=== PATIENT | female | born 1965 | race African-American/Black ===

== ENCOUNTER 2019-06-02 09:22 | Emergency (ER) | payer OTHER, SELFPAY ==
--- NOTE | ~2019-06-02 | XR_ITS ---
EXAMINATION: XR chest 2V 06/02/2019 10:03 INDICATION: Upper left-sided chest pain PROCEDURE: 2 view chest COMPARISON: No prior studies for comparison. FINDINGS: The lungs are clear. The cardiomediastinal silhouette is within normal limits. There are no pleural effusions. There is no pneumothorax suspected. IMPRESSION: 1: NO ACUTE CARDIOPULMONARY DISEASE. Reviewed, dictated and finalized at location A.
--- NOTE | 2019-06-02 09:24 | ECG_ITS ---
Measurements Intervals [place] Rate: 72 P: 30 IA: 133 QRS: -44 QRSD: 90 T: 30 QT: 405 QTc: 446 Interpretive Statements SINUS RHYTHM LEFT AXIS DEVIATION DELAYED PRECORDIAL R/S TRANSITION VOLTAGE CRITERIA FOR LVH BASELINE ARTIFACT- V1-V3 BORDERLINE ECG Electronically Signed On 06-02-2019 10:55:49 CDT by Nikko Manzo D.O.
[2019-06-02 09:30] VITALS: BP 185/116; PULSE 72; RESP 14; TEMP 36.6; O2SAT 100
[2019-06-02 09:33] VITALS: PULSE 66
[2019-06-02] MEDS: KETOROLAC 30 MG/ML VIAL (*BKC) IV PUSH (09:47)
[2019-06-02 09:49] LABS: Basophils Percent Auto 0.4 % (0.2-1.2); Eosinophils Absolute Auto 0.1 K/mm3 (0-0.3); Eosinophils Percent Auto 1.5 % (0-4.4); Hematocrit 41.7 % (37.0-47.0); Hemoglobin 13.2 g/dL (12.0-15.0); Lymphocytes Absolute Auto 2.03 K/mm3 (0.9-3.2); Lymphocytes Percent Auto 38.2 % (18.3-44.2); Mean Corpuscular HGB Conc 31.7 g/dl (32-36); Mean Corpuscular Hemoglobin 30.3 pg (26-34); Mean Corpuscular Volume 95.6 fl (80-100); Mean Platelet Volume 10.5 fl (7.4-10.4); Monocytes Absolute Auto 0.5 K/mm3 (0.1-0.6); Monocytes Percent Auto 8.8 % (2.6-8.5); Neutrophils Absolute Auto 2.7 K/mm3 (1.3-6.7); Neutrophils Percent Auto 51.1 % (45.5-73.1); Platelet Count Result 247 k/mm3 (150-375); Red Blood Count 4.36 M/mm3 (4.2-5.4); Red Cell Distribution Width 12.6 % (11.5-14.5); White Blood Count 5.3 K/mm3 (4.5-10.0)
[2019-06-02 10:00] LABS: INR 0.9; Prothrombin Time 11.3 Seconds (11.1-14.7)
[2019-06-02 10:02] LABS: Blood Urea Nitrogen 10 mg/dL (7-17); Calcium 9.5 mg/dL (8.4-10.2); Carbon Dioxide 31 mmol/L (22-30); Chloride 102 mmol/L (98-107); Estimated CRCL calculation 96 ml/min; Estimated Glomerular Filt Rate > 60; Glucose 125 mg/dL (65-105); Potassium 3.7 mmol/L (3.4-5.0); Sodium 137 mmol/L (137-145)
[2019-06-02 10:14] LABS: Troponin I < 0.012 ng/mL (0.000-0.034)
--- NOTE | 2019-06-02 10:15 | ED.CHESTPAIN ---
HPI - Chest Pain General Chief Complaint: Chest Pain Stated Complaint: CP Time Seen by Provider: 06/02/19 09:26 History of Present Illness HPI narrative: Patient is a 53-year-old female who presents the ER with left-sided neck/chest/shoulder pain. Symptoms began yesterday and have been persistent. Worse anytime she turns her head to the left side or lifts her left arm above her head. She did receive a massage yesterday that that helped symptoms slightly. She is not taking any oral medication to treat the pain. No exertional chest pain/shortness of breath/diaphoresis. Denies any runny nose/sore throat/productive cough. No history of coronary disease. Related Data Home Medications Medication Instructions Recorded Confirmed conjugated estrogens [Premarin] 0.625 mg PO DAILY 06/02/19 famotidine 20 mg PO HS 06/02/19 omeprazole 20 mg PO BID 06/02/19 Allergies Allergy/AdvReac Type Severity Reaction Status Date / Time No Known Allergies Allergy Verified 06/02/19 09:35 Review of Systems Review of Systems: All systems reviewed & are unremarkable except as noted in HPI and below Constitutional: Constitutional: Denies chills, Denies fever(s) and Denies weakness ENT: Denies nasal congestion and Denies sore throat Cardiovascular: Cardiovascular: Reports chest pain and Reports radiating jaw, neck or arm pain Respiratory: Respiratory: Denies cough, Denies dyspnea and Denies wheezing Musculoskeletal: Comments: Left neck/back pain PMFSH Past Medical History Medical History (Updated 06/02/19 @ 11:52 by Zay Howard MD) No pertinent past medical history Surgical History Surgical History (Updated 06/02/19 @ 11:48 by Zay Howard MD) H/O: hysterectomy Social History Social History Gender identity (if verbalized by the patient): Female Exam Narrative: Exam Narrative: GENERAL: Well-appearing, well-nourished, and in no acute distress. HEAD: Normocephalic, atraumatic. ENT: Mucous membranes moist. NECK: Left paraspinal muscular pain low cervical region at the trapezius. No midline tenderness. Range of motion intact. CHEST: Clear to auscultation. No respiratory distress. HEART: Regular rate and rhythm. Normal peripheral pulses. ABDOMEN: Soft, nontender, nondistended. EXTREMITIES: Normal range of motion. No edema. SKIN: Warm, dry, no rash. NEURO: Alert and oriented x3. Course Course Emergency Course: Mild improvement with Toradol. Still has discomfort with turning her head to the left. Discussed treatment plan and patient verbalized understanding. Vital Signs Vital signs: Vital Signs Temperature 97.9 F 06/02/19 09:30 Pulse Rate 72 06/02/19 09:30 Respiratory Rate 14 06/02/19 09:30 Blood Pressure 185/116 H 06/02/19 09:30 Pulse Oximetry 100 06/02/19 09:30 Temperature 97.9 F 06/02/19 09:30 Pulse Rate 50 L 06/02/19 11:07 Respiratory Rate 14 06/02/19 11:07 Blood Pressure 177/96 H 06/02/19 11:07 Pulse Oximetry 100 06/02/19 11:07 MDM - Chest Pain Lab Data Result diagrams: 06/02/19 09:42 06/02/19 09:42 Labs: Lab Results 06/02/19 06/02/19 06/02/19 Range/Units 09:42 09:42 09:42 WBC 5.3 (4.5-10.0) K/mm3 RBC 4.36 (4.2-5.4) M/mm3 Hgb 13.2 (12.0-15.0) g/dL Hct 41.7 (37.0-47.0) % MCV 95.6 (80-100) fl MCH 30.3 (26-34) pg MCHC 31.7 L (32-36) g/dl RDW 12.6 (11.5-14.5) % Plt Count 247 (150-375) k/mm3 MPV 10.5 H (7.4-10.4) fl Immature Gran % (Auto) 0.0 (0-0.5) % Neut % (Auto) 51.1 (45.5-73.1) % Lymph % (Auto) 38.2 (18.3-44.2) % [place] % (Auto) 8.8 H (2.6-8.5) % Eos % (Auto) 1.5 (0-4.4) % Baso % (Auto) 0.4 (0.2-1.2) % Lymph # (Auto) 2.03 (0.9-3.2) K/mm3 [place] # (Auto) 0.5 (0.1-0.6) K/mm3 Eos # (Auto) 0.1 (0-0.3) K/mm3 Baso # (Auto) 0.0 (0.0-0.1) K/mm3 Abs Immat Gran (auto) 0.00 (0.00-0.031) K/mm3 Absolute Neuts (auto) 2.7
[2019-06-02 11:07] VITALS: BP 177/96; PULSE 50; RESP 14; O2SAT 100
[2019-06-02 11:30] VITALS: BP 153/93; PULSE 70; RESP 14; O2SAT 100
== END 2019-06-02 12:09 | disposition home or self-care (01) ==
PROVIDERS: Emergency Provider Emergency Medicine; PCP Family Medicine Sports Medicine
DX: M54.12 Radiculopathy, cervical region (principal); R94.31 Abnormal electrocardiogram [ECG] [EKG]
CPT/HCPCS: 36415; 71046; 80048; 84484; 85025; 85610; 85730; 93005; 96374; 99284; J1885

== ENCOUNTER 2024-03-16 15:17 | Outpatient (CLI) | payer OTHER, SELFPAY ==
--- OUTSIDE RECORDS SUMMARY | 2024-03-16 15:40 | XMS_ITS | Clinical Summary ---
Author Organization [facility] Address [facility] [place] [address] [place] [address] Care Team Providers Care Family Counselor Name Role Phone Chandler Jacinto MD Primary Care Provider [phone] Allergies No known active allergies Medications amLODIPine (NORVASC) 5 MG tabletIndications :Essential hypertension Take 1 tablet (5 mg total) by mouth daily. 90 tablet 3 4 Active hydroCHLOROthiazi de (MICROZIDE) 12.5 MG capsuleIndication s:Essential (primary) hypertension Take 1 capsule (12.5 mg total) by mouth every morning. 90 capsule 3 4 Active omeprazole (PRILOSEC) 40 MG capsuleIndication s:Gastroesophagea l reflux disease without esophagitis Take 1 capsule (40 mg total) by mouth daily. 90 capsule 3 4 Active azithromycin (ZITHROMAX) 250 MG tabletIndications :Acute recurrent frontal sinusitis Take 2 tablets by mouth on day one then 1 daily for four days. 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 Overview (08/07/2020): Added automatically from request for surgery [id number] Sacroiliac joint dysfunction 05/09/2020 Encounter to discuss test results 03/04/2020 Other constipation 03/04/2020 Gastroesophageal reflux disease without esophagi tis 01/25/2020 Tooth abscess 01/25/2020 Essential hypertension 04/18/2018 Greater trochanteric bursitis of right hip 04/18 Recurrent major depressive disorder, in full rem ission 04/18/2018 Obesity due to excess calories without serious c omorbidity 04/18/2018 Allergic rhinitis 05/17/2017 Hair loss 05/10/2017 Depression with anxiety 01/24/2016 Headache 01/24/2016 Obesity 01/24/2016 Wrist pain 07/18/2015 Insomnia 06/21/2014 Abnormal blood chemistry 09/26/2013 Resolved Problems Problem Noted Date Diagnosed Date Resolved Date Prolapse of female pelvic organs 04/15/2017 04/16/2017 Uterine prolapse 04/14/2017 04/16/2017 Fibroids, subserous 04/13/2017 01/25/20 Cystourethrocele 04/13/2017 04/16/2017 Rectocele 04/13/2017 04/16/2017 Annual physical exam 09/19/2013 020 Encounters Date Type Department Care Team Description 03/01/2024 Telephone [facility] Family and Sports Medicine - [place] [phone] Chandler Jacinto MD Information 12/30/2023 Scan HEALTH INFO SRVCS Scanned, Doc Med Group from Last 3 Months Immunizations Name Administration Dates Next Due Influenza Adult (Generic) 02/19/2020(Deferred: P atient/family declined) Tdap (Generic) 12/07/2014 Family History Medical History Relation Comments Diabetes Father Stroke Father Breast Cancer Maternal Grandmother Cancer Mother breast with mets Hypertension Mother Relation Status Comments Daughter 1 Alive Daughter 2 Alive Daughter 3 Alive Father htn Maternal Grandmother Mother cancer Son 1 Alive Son 2 Alive Son 3 (Age 32) accident Social History Tobacco Use Types Packs/Day Years Used Date Smoking Tobacco: Never Passive Smoke Exposure: Never Smokeless Tobacco: Never Tobacco Cessation:Counseling Given: No Alcohol Use Standard Drinks/Week Comments No 0 (1 standard drink = 0.6 oz pur e alcohol) PHQ-2 Answer Date Recorded Patient Health Questionnaire-2 Score 0 08/05/2023 Comments No Sex and Gender Information Value Date Recorded Sex Assigned at Not on file Legal Sex Female 7:38 PM CDT Gender Identity Not on file Sexual Orientation Not on file Last Filed Vital Signs Vital Sign Reading Time Taken Comments Blood Pressure 151/94 08/05/2023 2:31 PM CDT Pulse 74 08/05/2023 2:26 PM CDT Temperature 36.7 ??C (98.1 ??F) 08/05/2023 2:26 PM CD T Respiratory Rate 16 08/05/2023 2:26 PM CDT Oxygen Saturation 98% 08/05/2023 2:26 PM CDT Inhaled Oxygen Concentration - - Weight 87.1 kg (192 lb) 08/05/2023 2:26 PM CDT Height 154.9 cm (5' 1 ) 08/05/2023 2:26 PM CDT Body Mass Index 36.28 08/05/2023 2:26 PM CDT Plan of Treatment Health Maintenance Due Date Last Done Comments Hepatitis B Vaccines (1 of 3 - 19+ 3-dose series) 1984 COVID-19 Vaccine ( - 2023- season) 2023 09/14/2020, 08/12/2020 Influenza Adult (#1) 2023 PHQ-2 (Physician [place]) 02/16/2024 08/05/2023 Mammogram Screening 06/02/2024 06/02/2022, 9 Annual Physical 08/04/2024 08/05/2023, 01/25/2020 PHQ-2 (Physician [place]) 08/04/2024 08/05/2023 Zoster Vaccines (1 of 2) 08/04/2024 Pos tponed from 2016 (Going to Outside Clinic) DTaP, Tdap and Td Vaccines (2 - Td or Tdap) 12/07/2024 12/07/2014 Colorectal Cancer Screening Colonoscopy (10 Years) 09/19/2030 09/19/2020 Hepatitis C Completed 03/01/2024, 10/2023, 11/23/2023, Additional history exists Meningococcal B Vaccine Aged Out No l onger eligible based on patient's age to complete this topic Meningococcal Vaccine Aged Out No óscar samantha eligible based on patient's age to complete this topic Pneumococcal Vaccine: Pediatrics (0 to 5 Years) and At-Risk Patients (6 to 64 Years) Aged Out No longer eligible based on patient's age to complete this topic RSV Immunizations Under 20 Months Aged Out No longer eligible based on patient's age to complete this topic Medical Devices Implanted Type Area Blow Moulding Machine Operator Device Identifier Shelf Expiration Date Model / Serial / Lot Sling Obtryx Halo Midurethral - [id number] Implanted:Qty: 1 on 04/13/2017 by Miguel Fish MD at [facility] Urology N/A: Urethra [employer] SAT[employer] 12/03/2019 [id number] / / [id number] Procedures Procedure Name Priority Date/Time Associated Diagnosis Comments HEPATITIS C RNA W/ REFLX GENOTYPE Routine 11/23/2023 4:41 PM CDT Hepatitis C MG SCREENING W DUDLEY TEO DIGI Routine 06/02/2022 3:02 PM CDT Essential (primary) hypertension Essential hypertension from Last 3 Months or Most Recently Relevant to Health Maintenance Results * (ABNORMAL) HEPATITIS C RNA W/ REFLX GENOTYPE (11/23/2023 4:41 PM CDT) Pathologist [facility] HEPATITIS C RNA PCR QNT 330,000(H ) IU/mL 11/26/2023 4:48 PM CDT [employer] AnalyticsINDIA [place] HEP C RNA PCR QNT LOG 5.52(H) log IU/mL 11/26/2023 4:48 PM CDT [employer] [place] Comment: Reference Range: ?Not Detected ?IU/mL ?Not Detected ?Log IU/mL For additional information please refer to http://education.Everwise/faq/ERE22k7 (This link is being provided for informational/ educational purposes only.) Test Performed by Dayron Cormier, [facility], [address] [place] [address] Russ Arellano M.D., Ph.D., Director of Laboratories , [facility] [id number] 11/23/2023 4:41 PM CDT Celine Samayoa MD LABORATORY Final Result THAI [facility] [address] [place] [address], [place] [phone] * MG SCREENING W DUDLEY TEO DIGI (06/02/2022 3:02 PM CDT) Anatomical Region Laterality Modality Breast Bilateral Mammography 06/02/2022 3:04 PM CDT Narrative 06/02/2022 3:05 PM CDT Examination: Screening bilateral mammogram Exam Date/Time: 06/02/2022 2:41 PM Clinical history: No current complaints. Comparison: 12/26/2018 Technique: Digital screening mammography of both breasts was performed. ? Breast tomosynthesis acquisitions were obtained and reviewed. ??This study was read with the assistance of a computer-aided detection system. Tissue density: There are scattered areas of fibroglandular density. Findings: No suspicious masses, malignant appearing calcifications, skin thickening or other abnormalities are present. ??No significant change from the prior exam. IMPRESSION: No suspicious mammographic findings. Recommendation: 1. Routine Screening, Bilateral Assessment: ACR BI-RADS 2 - BENIGN FINDING(S) Ordered By: CHANDLER JACINTO Interpreted By: Buster Tate, 06/02/2022 3:04 PM Chandler Jacinto MD MAMMO Final Result from Last 3 Months or Most Recently Relevant to [place] [address] [place] [address] [facility] Advance Directives * Full Code (Latest Code Status on File) Date Activated Date Inactivated Comments 04/13/2017 5:32 PM 04/16/2017 4:26 PM * Full Code Date Activated Date Inactivated Comments 04/13/2017 3:08 PM 04/13/2017 5:32 PM Care Teams Family Counselor Relationship Specialty Start Date End Date Chandler Jacinto MD [address] [phone] PCP - General 07/17/14
[2024-03-16 16:07] LABS: Alanine Aminotransferase 45 U/L (6-35); Albumin Level 4.1 g/dL (3.5-5.1); Alkaline Phosphatase 96 U/L (38-126); Anion Gap 8 mmol/L (4-12); Aspartate Amino Transferase 49 U/L (14-36); Bilirubin,Total 0.6 mg/dL (0.2-1.3); Blood Urea Nitrogen 10 mg/dL (7-17); Calcium 9.8 mg/dL (8.4-10.2); Carbon Dioxide 32 mmol/L (22-30); Chloride 101 mmol/L (98-107); Estimated Glomerular Filt Rate > 60; Glucose 87 mg/dL (65-110); Potassium 3.3 mmol/L (3.4-5.0); Sodium 141 mmol/L (137-145)
[2024-03-16 16:55] LABS: Hematocrit 40.4 % (37.0-47.0); Mean Corpuscular HGB Conc 32.2 g/dl (32-36); Mean Corpuscular Hemoglobin 30.9 pg (26-34); Mean Platelet Volume 10.8 fl (7.4-10.4); Platelet Count Result 287 k/mm3 (150-375); Red Blood Count 4.21 M/mm3 (4.2-5.4); Red Cell Distribution Width 12.5 % (11.5-14.5); White Blood Count 4.1 K/mm3 (4.5-10.0)
[2024-03-16 17:16] LABS: Hepatitis B Surface Antigen Negative (Negative)
== END 2024-03-16 15:18 | disposition home or self-care (01) ==
LOC: ANHLAB 15:18
PROVIDERS: PCP Family Medicine Sports Medicine; Visit Provider Nurse Practitioner Family
DX: B19.20 Unspecified viral hepatitis C without hepatic coma (principal)
CPT/HCPCS: 36415; 80048; 80076; 85027; 86704; 87340; 87522

== ENCOUNTER 2024-03-25 07:46 | Outpatient (CLI) | payer OTHER, SELFPAY ==
--- NOTE | ~2024-03-25 | US_ITS ---
EXAMINATION: US abdomen limited DATE: 03/25/2024 08:18 INDICATION: B19.20 - Unspecified viral hepatitis C without hepatic coma TECHNIQUE: Multiple grayscale and Doppler ultrasound images of limited portions of the abdomen were o btained. COMPARISON: None available. FINDINGS: The visualized portions of the pancreas are normal. The liver is normal with normal echogen icity and echotexture. No surface nodularity. Normal hepatopetal flow in the main portal vein. The ga llbladder is normal with no abnormal wall thickening, pericholecystic fluid or stones. The common jose e duct measures 5 mm. There was no sonographic Haile sign. IMPRESSION: Normal limited abdominal ultrasound findings. Reviewed, dictated and finalized at location K. NTOLOGICAL PHYSIOTHERAPIST
--- OUTSIDE RECORDS SUMMARY | 2024-03-25 07:49 | XMS_ITS | Clinical Summary ---
Author Organization [facility] Address [facility] [place] [address] Care Team Providers Care Rampman Name Role Phone Ale Jacinto MD Primary Care Provider [phone] Allergies No known active allergies Medications amLODIPine [...] (08/07/2020): Added automatically from request for surgery [id number] Sacroiliac joint dysfunction 05/09/2020 Encounter to discuss [...] prolapse 04/14/2017 04/16/2017 Fibroids, subserous 04/13/2017 01/25/20 20 Cystourethrocele 04/13/2017 04/16/2017 Rectocele 04/13/2017 04/16/2017 Annual physical exam 09/19/2013 020 Encounters Date Type Department Care Team Description 03/01/2024 Telephone [facility] Family and Sports Medicine - [address] [phone] Ale Jacinto MD Information 12/30/2023 Scan HEALTH INFO [...] 74 08/05/2023 2:26 PM CDT Temperature 36.7 C (98.1 F) 08/05/2023 2:26 PM CDT Respiratory Rate 16 08/05/2023 2:26 PM CDT [...] - 19+ 3-dose series) 1984 COVID-19 Vaccine (2023- season) 2023 09/14/2020, 08/12/2020 Influenza Adult (#1) 2023 PHQ-2 (Physician [place]) 02/16/2024 08/05/2023 Mammogram Screening 06/02/2024 06/02/2022, 9 Annual Physical 08/04/2024 08/05/2023, 01/25/2020 PHQ-2 (Physician [place]) 08/04/2024 08/05/2023 Zoster Vaccines (1 of 2) [...] this topic Medical Devices Implanted Type Area Putty Glazer Device Identifier Shelf Expiration Date Model / Serial / Lot Sling Obtryx Halo Midurethral - [id number] Implanted:Qty: 1 on 04/13/2017 by Miguel Fish MD at [facility] Urology N/A: Urethra [employer] SATISH 12/03/2019 [id number] / / [id number] Procedures Procedure Name Priority Date/Time Associated Diagnosis Comments HEPATITIS C RNA W/ REFLX GENOTYPE Routine 11/23/2023 4:41 PM CDT Hepatitis C MG SCREENING W DUDLEY TEO DIGI Routine 06/02/2022 3:02 PM CDT Essential (primary) hypertension Essential hypertension from Last 3 Months or Most Recently Relevant to Health Maintenance Results * (ABNORMAL) HEPATITIS C RNA W/ REFLX GENOTYPE (11/23/2023 4:41 PM CDT) HEPATITIS C RNA PCR QNT 330,000(H ) IU/mL 11/26/2023 4:48 PM CDT [employer]FU[employer] [place] HEP C RNA PCR QNT LOG 5.52(H) log IU/mL 11/26/2023 4:48 PM CDT [employer] [facility] Comment: Reference Range: Not Detected IU/mL Not Detected Log IU/mL For additional information please refer to http://education.5skills/faq/XWZ08b2 (This link is being provided for informational/ educational purposes only.) Test Performed by [employer], [employer] [facility], [address] [place] [address] Russ Arellano M.D., Ph.D., Director of Laboratories , [facility] [id number] 11/23/2023 4:41 PM CDT us Celine Samayoa MD LABORATORY Final Result [id number] , [place] [phone] * MG SCREENING W DUDLEY TEO DIGI (06/02/2022 3:02 PM CDT) Anatomical Region Laterality Modality Breast Bilateral Mammography 06/02/2022 3:04 PM CDT Narrative 06/02/2022 3:05 PM CDT Examination: Screening bilateral mammogram Exam Date/Time: 06/02/2022 2:41 PM Clinical history: No current complaints. Comparison: 12/26/2018 Technique: Digital screening mammography of both breasts was performed. Breast tomosynthesis acquisitions were obtained and reviewed. This study was read with the assistance of a computer-aided detection system. Tissue density: There are scattered areas of fibroglandular density. Findings: No suspicious masses, malignant appearing calcifications, skin thickening or other abnormalities are present. No significant change from the prior exam. IMPRESSION: No suspicious mammographic findings. Recommendation: 1. Routine Screening, Bilateral Assessment: ACR BI-RADS 2 - BENIGN FINDING(S) Ordered By: ALE JACINTO Interpreted By: Buster Tate, 06/02/2022 3:04 PM Ale Jacinto MD MAMMO Final Result from Last 3 Months or Most Recently Relevant to Health Maintenance [place] [address] [facility] Advance Directives * Full Code (Latest Code Status on File) Date Activated Date Inactivated Comments 04/13/2017 5:32 PM 04/16/2017 4:26 PM * Full Code Date Activated Date Inactivated Comments 04/13/2017 3:08 PM 04/13/2017 5:32 PM Care Teams Rampman Relationship Specialty Start Date End Date Ale Jacinto MD [address] [address] PCP - General 07/17/14
== END 2024-03-25 07:47 | disposition home or self-care (01) ==
PROVIDERS: PCP Family Medicine Sports Medicine; Visit Provider Nurse Practitioner Family
DX: B19.20 Unspecified viral hepatitis C without hepatic coma (principal)
CPT/HCPCS: 76705